=== PATIENT | female | born 1935 | race Caucasian/White ===

== ENCOUNTER 2016-11-21 15:35 | Observation (INO) | payer OTHER ==
[~2016-11-21] VITALS: Ht 162.6 cm; Wt 66.2 kg
--- NOTE | ~2016-11-21 | HP ---
Unit #: [id number] #: [id number] Patient: MELISSA ESPINO [id number] [address] [place], [place] [address] [id number] I MR#: [id number] NAME: MELISSA ESPINO. ROOM: 568 Age: 80 Sex: F Admission Date: 11/21/2016 : 1935 Attending Physician: Viji Arredondo M.D. HISTORY AND PHYSICAL REASON FOR ADMISSION High blood pressure and some chest tightness. HISTORY OF PRESENT ILLNESS This is a very pleasant 80-year-old female with a past medical history significant for hypertension, macular degeneration, who presented to the emergency room with elevated blood pressure. The patient stated that she routinely check her blood pressure and when she checked this morning it was 220/110. Her blood pressure at baseline in the 120 to 130s. Patient stated that she had some chest tightness and shortness of breath but it wasn't severe enough to make her concerned. However, the elevated blood pressure made her present to the emergency room. The patient takes her medication faithfully but she was unsure if she mixed some of her medication and she messed up her lisinopril dose. The patient never had a stress test or heart cath in the past. PAST MEDICAL HISTORY 1. Hypertension. 2. Macular degeneration. 3. Uterus cancer. PAST SURGICAL HISTORY Hysterectomy. ALLERGIES Valtrex. FAMILY HISTORY Noncontributory. SOCIAL HISTORY Patient smokes less than a pack per day for the last 50 years. No history of alcohol or drug abuse. She lives with her daughter. REVIEW OF SYSTEMS Twelve point review of systems were obtained and were negative except for what was mentioned in the HPI. PHYSICAL EXAMINATION GENERAL: The patient is in no acute distress. Unit #: [id number] #: [id number] Patient: MELISSA ESPINO VITAL SIGNS: Blood pressure is 185/62. HEENT: Atraumatic, normocephalic. PERRLA, EOMI. NECK: Supple. No JVD, no lymphadenopathy. CHEST: Clear to auscultation bilaterally. HEART: S1, S2. Systolic murmur. ABDOMEN: Soft, nontender. Bowel sound is positive. No hepatosplenomegaly. EXTREMITIES: No edema or cyanosis. SKIN: No rashes. BULK TRUCK DRIVER: Awake, alert, oriented x3. No focal motor/sensory deficits. DIAGNOSTIC STUDIES LABORATORY: Her labs from the other ER was reviewed by me and creatinine 0.7, hemoglobin 12.2, sodium 136. IMAGING: Chest x-ray clear. EKG showed left bundle branch block. ASSESSMENT 1. Hypertensive urgency. 2. Left bundle branch block. 3. Macular degeneration. 4. Hyperlipidemia. 5. History of uterus cancer. PLAN 1. Patient will be admitted to monitored bed for close observation. 2. Gradual control of her blood pressure. 3. Will repeat EKG and keep NPO after midnight pending cardiac eval as she may need stress test. 4. Will defer echocardiogram to cardiology. Patient may have a previous echocardiogram at different facility which we will try to obtain. 5. DVT prophylaxis. I would like to thank you for allowing me to be part of this patient's care. Dictated by Lee Charles M.D. EA/sundeep TD: 11/22/2016 05:57 JOB #: [id number] Unit #: [id number] #: [id number] Patient: MELISSA ESPINO HISTORY AND PHYSICAL Page 1 of 1 X LEE MOORE MD HISTORY AND PHYSICAL
--- NOTE | ~2016-11-21 | ST ---
Unit #: [id number] #: [id number] Patient: MELISSA ESPINO [id number] [facility] [address] [facility]. [place], [place] [address] [id number] I MR#: [id number] NAME: MELISSA ESPINO. : 1935 SEX: F STUDY DATE/TIME: 11/22/2016 UNIT: [facility] ROOM: [facility] STUDY DESCRIPTION: Lexiscan cardiolite stress Attending Physician: Viji Arredondo M.D. CARDIOLOGY REPORT EXAM Lexiscan Cardiolite stress test. DESCRIPTION Baseline EKG, normal sinus rhythm with a ventricular rate of 85 BPM, Q waves in V1, poor R wave progression, left bundle branch block. Lexiscan is a 4 minute test with Lexiscan being injected within the first minute and followed by Cardiolite. EKG during the test was equivocal to baseline. Did have some T wave inversion in lead 2 and also in lateral leads, which was noted to be also at baseline. Patient had no complaints of chest pain, palpitations or dizziness and had increased shortness of breath and fatigueness, which resolved during recovery phase. Maximum heart rate response was 122 BPM with a maximum blood pressure response 160/91 mmHg. Cardiolite was injected after Lexiscan within the first minute of the test. Radionuclide test pending. Please correlate with nuclear images. Dictated by... Berkley Yin A.P.R.N. for Katerin Lange/lio TD: 11/22/2016 11:35 JOB #: [id number] Unit #: [id number] #: [id number] Patient: MELISSA ESPINO CARDIOLOGY REPORT Page 1 of 1 X Berkley Yin APRN CARDIOLOGY REPORT
--- NOTE | ~2016-11-21 | TH ---
Unit #: [id number] #: [id number] Patient: MELISSA ESPINO [id number] [address] [address] [id number] I MR#: [id number] NAME: MELISSA ESPINO. : 1935 SEX: F STUDY DATE/TIME: 11/22/2016 UNIT: [facility] ROOM: 568 STUDY DESCRIPTION: Lexiscan Cardiolite stress Attending Physician: Viji Arredondo M.D. CARDIOLOGY REPORT EXAM Lexiscan Cardiolite stress test, nuclear portion. PROCEDURE Using technetium-99m labeled Cardiolite, rest and stress SPECT images were obtained. Multiple SPECT images were obtained in various views including horizontal and vertical long axis and short axis views of the left ventricle. Images were obtained by gated SPECT method. Patient was administered 10.26 mCi of Cardiolite at rest. Patient was administered 30.1 mCi of Cardiolite after Lexiscan infusion was completed. On the stress images, there is normal perfusion noted. The rest images show normal perfusion. Comparing rest and stress images, there is no stress induced ischemia noted. The left ventricular ejection fraction is calculated to be 70%. There is no focal wall motion abnormality seen. CONCLUSIONS 1. No stress induced ischemia noted. 2. The left ventricular ejection fraction is calculated to be 70%. 3. There is no focal wall motion abnormality seen. 4. The left ventricular size is small. 5. Normal Lexiscan Cardiolite stress test. Dictated by... Katerin Lange TD: 11/22/2016 13:14 JOB #: [id number] CARDIOLOGY REPORT Page 1 of 1 X Marce Vazquez MD <ELECTRONICALLY SIGNED> 12/27/16 1524 CARDIOLOGY REPORT
--- NOTE | ~2016-11-21 | EKG ---
PATIENT: MELISSA ESPINO UNIT #: [id number] Ventricular Rate: 86 BPM Atrial Rate: 86 BPM P-R Interval: 160 ms QRS Duration: 132 ms Q-T Interval: 416 ms QTC Calculation(Bezet): 497 ms P Homer: 71 degrees Calculated R Homer: 18 degrees Calculated T Homer: 147 degrees Diagnosis Line: Normal sinus rhythm Diagnosis Line: Left bundle branch block Diagnosis Line: Abnormal ECG Diagnosis Line: No previous ECGs available Diagnosis Line: Confirmed by HE VERDIN MD ([id number]) on 11/22/2016 Diagnosis Line: 6:52:56 PM INTERPRETING MD: LAMBERT MCBRIDE
--- NOTE | ~2016-11-21 | CO ---
Unit #: [id number] #: [id number] Patient: MELISSA ESPINO [id number] [address] [place], [place] [address] [id number] I MR#: [id number] NAME: MELISSA ESPINO. ROOM: 568 Age: 80 Sex: F Admission Date: 11/21/2016 : 1935 Attending Physician: Viij Arredondo M.D. CONSULTATION REPORT REASON FOR CONSULTATION Left bundle-branch block on EKG. HISTORY OF PRESENT ILLNESS This is an 80-year-old white female, who presented to [facility] with an elevated blood pressure. The patient states yesterday she had substernal chest tightness that was not radiating to her neck, arm, or jaw. She took her blood pressure and stated it was elevated with a systolic of over 200. For this reason, she came to the emergency room for evaluation. At the time of arrival, documented blood pressures were 210/104 mmHg, which she was treated with labetalol. Her chest pain resolved. Her troponin was negative. EKG showed left bundle-branch block. There were no EKGs for comparison. The patient is known to be hypertensive for 15 to 20 years. Her chest tightness mostly occurred on exertion. Occasionally, it did radiate to her neck in the past. She denies shortness of breath, paroxysmal nocturnal dyspnea, and orthopnea. She does have occasional leg edema. She denies history of myocardial infarction, CVA, or TIA. She has no history of diabetes. Her risk factor is a nicotine abuse. PAST MEDICAL HISTORY 1. Hypertension. 2. Macular degeneration. 3. Uterine cancer. 4. Chronic back pain. 5. Nicotine abuse. 6. Bullous pemphigoid. PAST SURGICAL HISTORY Hysterectomy. SOCIAL HISTORY The patient is a and is cared for by her daughter. She ambulates with a cane. She smokes half a pack of cigarettes per day for greater than 45 years. No illicit drug or alcohol use. FAMILY HISTORY Negative for coronary artery disease. ALLERGIES Latex and Valtrex. BODY AFTER AXIS Unit #: [id number] #: [id number] Patient: MELISSA ESPINO HOME MEDICATIONS 1. Lisinopril 15 mg b.i.d. 2. Clonidine 0.2 mg daily. 3. Folic acid 1 mg daily. 4. Methotrexate 10 mg q.7 days. 5. Calcium carbonate with vitamin D one tablet daily. 6. Multivitamin 1 tablet daily. 7. Fish oil 1000 mg daily. 8. Aspirin 81 mg daily. REVIEW OF SYSTEMS Ten-point review of system is negative except details stated in HPI. PHYSICAL EXAMINATION VITAL SIGNS: Blood pressure 154/61, heart rate 86, temperature 97.8, BMI is 25. GENERAL: This is a mildly obese 80-year-old elderly white female, who is in no acute distress. NEUROLOGIC: She is awake, alert, and oriented. There are no focal weaknesses. NECK: Trachea is midline. No thyromegaly or lymphadenopathy. No jugular venous distention. There are no carotid bruits. HEART: S1 and S2. Heart sounds are normal. No rubs or clicks. Murmur of aortic sclerosis and aortic root dilatation. Regular rate and rhythm. LUNGS: Clear without rales, rhonchi, or wheeze. ABDOMEN: Soft and nontender with bowel sounds present. No organomegaly. EXTREMITIES: Without leg edema. SKIN: Warm and dry. DIAGNOSTIC STUDIES LABORATORY RESULTS: Sodium 138, potassium 3.8, BUN 11, creatinine 0.79. Troponin 0.02. White count 4.1, hemoglobin 11.2, hematocrit 34.0, platelet count 222. CARDIOVASCULAR STUDIES: EKG; Normal sinus rhythm with a rate of 84 beats per minute with left bundle-branch block. There is left axis deviation. IMAGING STUDIES: Chest x-ray shows normal size heart with pulmonary fibrosis. IMPRESSION 1. Uncontrolled hypertension. 2. Chronic obstructive pulmonary disease. 3. Chest pain, questionable ischemic heart disease. 4. Murmur of aortic sclerosis and aortic root dilatation. PLAN 1. Cardiology was consulted for left bundle-branch block. The patient may have ischemic heart disease. We will proceed with Lexiscan Cardiolite stress test. 2. Control blood pressure with addition of metoprolol 25 mg b.i.d. We will decrease lisinopril to 20 mg q.h.s. Add hydrochlorothiazide 25 mg daily. We will also decrease clonidine 0.1 mg t.i.d. 3. Continue anticoagulation with aspirin. 4. Fasting lipid profile will be obtained. 5. We will follow the patient with you. Thank you for allowing us to assist with this patient's care. Unit #: [id number] #: [id number] Patient: MELISSA ESPINO Dictated by... Maksim Hill A.P.R.N. for Katerin Mora/jose roberto TD: 11/22/2016 19:29 JOB #: [id number] CONSULTATION REPORT Page 1 of 1 X Maksim Hill APRN X CONSULTATION REPORT
--- NOTE | ~2016-11-21 | DS ---
Unit #: [id number] #: [id number] Patient: MELISSA ESPINO [id number] [address] [place], [place] [address] [id number] I MR#: [id number] NAME: MELISSA ESPINO. ROOM: 568 Age: 80 Sex: F Admission Date: 11/21/2016 : 1935 Discharge Date: 11/22/2016 Attending Physician: Viji Arredondo M.D. DISCHARGE SUMMARY ADMITTING DIAGNOSIS Hypertensive urgency. DISCHARGE DIAGNOSES 1. Hypertension. 2. Chest tightness. 3. Left bundle branch block. 4. Hypertension. 5. Macular degermation. 6. Uterus cancer. CONSULTANTS Dr. Betancourt. PROCEDURE Lexiscan stress test which was negative. DISCHARGE MEDICATION 1. Methotrexate 10 mg p.o. q.7 days. 2. Metoprolol 25 mg b.i.d. 3. Hydrochlorothiazide 25 mg p.o. daily. 4. Clonidine 0.1 mg t.i.d. 5. Lisinopril 20 mg p.o. daily. 6. Aspirin 81 mg p.o. daily. 7. Folic acid 1 mg p.o. daily. 8. Fish oil one tab daily. 9. Multivitamin one p.o. daily. DISCHARGE CONDITION Stable. DISCHARGE LOCATION Home. BRIEF HOSPITAL COURSE This is a very pleasant 80-year-old female with past medical history significant for hypertension, who presented to the emergency room with a very elevated blood pressure of 220/110. Patient denied any trigger factors like noncompliance, missing medication, infection or salty diet. Of note her EKG was consistent with left bundle branch block so patient Unit #: [id number] #: [id number] Patient: MELISSA ESPINO underwent stress test which was negative. Her blood pressure was controlled with no drips and new medication was added as listed above. Patient is stable on the day of discharge with no acute symptom. Patient to be discharged and follow up with her primary care in one to two weeks. Dictated by... Katerin Walters TD: 11/22/2016 22:34 JOB #: [id number] DISCHARGE SUMMARY Page 1 of 1 X LEE MOORE MD DISCHARGE SUMMARY
[~2016-11-21 15:35] MED LIST: [UNRECOGNIZED DRUG - REMARK]
[2016-11-21] MEDS ORDERED: LISINOPRIL30 MG PO (18:26)
[2016-11-21] MEDS ORDERED: CLONIDINE HCL0.1 MG PO (18:27)
[2016-11-21] MEDS ORDERED: FOLIC ACID1 MG PO (18:28)
[2016-11-21] MEDS ORDERED: METHOTREXATE2.5 MG PO (18:30)
[2016-11-21] MEDS ORDERED: ONE DAILY MULT1 EACH PO (18:32)
[2016-11-21] MEDS ORDERED: CALCIUM 600 +1 EAC4 PO (18:32)
[2016-11-21] MEDS ORDERED: FISH OIL 1,0001 EAC3 PO (18:33)
[2016-11-21] MEDS ORDERED: ASPIRIN81 MG PO (18:34)
[2016-11-22 14:26] LABS: %MB 3.1 % (0.0-4.0); MB 2.3 ng/ml; THYROID STIMULATING HORMONE 0.4 uIU/ml (0.34-5.60)
[2016-11-22 14:33] LABS: FREE THYROXIN (T4) 1.09 ng/dL (0.58-1.64)
[2016-11-22] MEDS ORDERED: METOPROLOL TAR25 MG PO (16:23)
[2016-11-22] MEDS ORDERED: HYDROCHLOROTHIA25 MG PO (16:25)
== END 2016-11-22 17:12 | disposition home or self-care (01) ==
LOC: C5C 16:53 → UNDOADMOB 16:53 → C5C 18:30
PROVIDERS: Internal Medicine Cardiovascular Disease
DX: I10 Essential (primary) hypertension (principal); R07.89 Other chest pain; I44.7 Left bundle-branch block, unspecified; H35.30 Unspecified macular degeneration; C55 Malignant neoplasm of uterus, part unspecified; J44.9 Chronic obstructive pulmonary disease, unspecified; I70.0 Atherosclerosis of aorta; F17.210 Nicotine dependence, cigarettes, uncomplicated; Z79.82 Long term (current) use of aspirin; Z79.899 Other long term (current) drug therapy
CPT/HCPCS: 82550; 82553; 83880; 84439; 84443; 84484; 93005; 93017; 93306; 96374; 96376; A9500; G0378; J0360; J1650; J2405; J2785